=== PATIENT | female | born 1995 | race Caucasian/White ===

== ENCOUNTER 2020-07-10 10:06 | Outpatient (REF) | payer OTHER, SELFPAY ==
[2020-07-10 10:50] LABS: COVID-19 Test Negative (Negative)
== END 2020-07-10 10:07 | disposition home or self-care (01) ==
LOC: HO.LAB 10:06
PROVIDERS: Visit Provider Internal Medicine
DX: Z20.828 Contact with and (suspected) exposure to other viral communicable diseases (principal)
CPT/HCPCS: 87635

== ENCOUNTER 2020-07-14 09:00 | Outpatient (REF) | payer OTHER, SELFPAY ==
[2020-07-14 09:26] LABS: COVID-19 Test Negative (Negative)
== END 2020-07-14 09:01 | disposition home or self-care (01) ==
LOC: HO.LAB 09:00
PROVIDERS: Visit Provider Internal Medicine
DX: Z20.828 Contact with and (suspected) exposure to other viral communicable diseases (principal)
CPT/HCPCS: 87635

== ENCOUNTER 2020-11-17 20:58 | Outpatient (REF) | payer OTHER, SELFPAY ==
[2020-11-17 21:37] LABS: COVID-19 Test Negative (Negative); IDNOW Serial# 9DD0AD1C
== END 2020-11-17 20:59 | disposition home or self-care (01) ==
LOC: HO.LAB 20:58
PROVIDERS: PCP Internal Medicine; Visit Provider Internal Medicine
DX: Z20.822 Contact with and (suspected) exposure to COVID-19 (principal)
CPT/HCPCS: 36415; 87635

== ENCOUNTER 2021-05-14 18:36 | Outpatient (REF) | payer OTHER, SELFPAY ==
[2021-05-14 19:28] LABS: HCG Quantitative < 2 mIU/mL
== END 2021-05-14 18:37 | disposition home or self-care (01) ==
LOC: HO.LAB 18:36
PROVIDERS: Visit Provider Emergency Medicine
DX: Z32.00 Encounter for pregnancy test, result unknown (principal)
CPT/HCPCS: 36415; 84702

== ENCOUNTER 2021-07-15 19:35 | Outpatient (REF) | payer OTHER, SELFPAY ==
[2021-07-15 20:41] LABS: HCG Quantitative 93497 mIU/mL
== END 2021-07-15 19:36 | disposition home or self-care (01) ==
LOC: HO.LAB 19:35
PROVIDERS: Visit Provider Physician Assistant Medical
DX: Z34.90 Encounter for supervision of normal pregnancy, unspecified, unspecified trimester (principal)
CPT/HCPCS: 36415; 84702